=== PATIENT | male | born 1940 | race Hispanic/Latino ===

== ENCOUNTER 2017-06-18 19:23 | Inpatient (IN) | payer MEDICARE, OTHER ==
[~2017-06-18] VITALS: Ht 165.1 cm; Wt 80.9 kg
[~2017-06-18 19:23] MED LIST: BENA20TA3 PO; BRIM5DRO4 OU; DORZ10DR10 OU; LACT1CAP58 PO; LATA2.5D2 OU; LEVO750T46 PO; LOVA20TA3 PO
[2017-06-18 20:38] LABS: HEMATOCRIT 40.2 % (42-54); MEAN CORPUSCULAR HEMOGLOBIN 30.9 pg (27.0-33.0); MEAN CORPUSCULAR VOLUME 90.8 fL (79-99); PLATELET COUNT (AUTO) 168 K/uL (130-400); RED BLOOD CELL COUNT(AUTO) 4.43 MIL/uL (4.50-6.20); RED CELL DISTRIBUTION WIDTH 14.1 % (11.0-15.5); WHITE BLOOD COUNT (AUTO) 9.3 K/uL (4.8-10.8)
[2017-06-18 20:47] LABS: APPEARANCE,URINE Cloudy (CLEAR); BILIRUBIN,URINE Negative (NEGATIVE); COLOR,URINE Yellow (YELLOW); GLUCOSE, URINE (UA) Negative (NEGATIVE); KETONES,URINE Negative (NEGATIVE); LEUKOCYTE ESTERASE ,URINE Moderate (NEGATIVE); NITRATE,URINE Negative (NEGATIVE); OCCULT BLOOD,URINE Moderate (NEGATIVE); PROTEIN,URINE POS 2+ (NEGATIVE); UROBILINOGEN,URINE 0.2 mg/dL (0.2-1.0)
[2017-06-18 20:50] LABS: CREATININE 0.9 mg/dL (0.5-1.5); POTASSIUM 3.7 mmol/L (3.5-5.1)
[2017-06-18 20:55] LABS: ALBUMIN 3.4 g/dL (3.5-5.0); BILIRUBIN,TOTAL 0.3 mg/dL (0.2-1.0); TOTAL PROTEIN, SERUM 7.2 g/dL (6.0-8.3)
[2017-06-18] MEDS ORDERED: IPRATROPIUM/ALBUTEROL SULFATE 3 ML SOLUTION IH ONE (20:59)
[2017-06-18 21:03] LABS: BACTERIA,URINE Few /HPF (None Seen); WBC,URINE 51-100 /HPF (0-1)
[2017-06-18] MEDS ORDERED: MEROPENEM 1 GM VIAL ONE (21:12)
[2017-06-18] MEDS ORDERED: SODIUM CHLORIDE 0.9% 1000ML 1,000 ML IV ONE (21:12)
[2017-06-18] MEDS ORDERED: ACETAMINOPHEN EXTRA STRENGTH 500 MG TABLET ONE (21:13)
[2017-06-18 21:14] LABS: BAND NEUTROPHILS % (MANUAL) 20 % (0-2); LYMPHOCYTES % (MANUAL) 11 % (22-44); MONOCYTES % (MANUAL) 6 % (2-9); REACTIVE LYMPHOCYTES 1 % (0-0); SEGMENTED NEUTROPHILS % 62 % (40-70)
[2017-06-18 21:16] LABS: MAN.DIFF COMMENT-IMPRESSION MANUAL DIFFERENTIAL; PLATELET MORPHOLOGY COMMENT ADEQUATE
[2017-06-19] MEDS ORDERED: SODIUM CHLORIDE 0.9% 1000ML 1,000 ML IV SCH (01:04)
[2017-06-19] MEDS ORDERED: LACTULOSE 20 GM/30 ML UDCUP PO PRN (01:15)
[2017-06-19] MEDS ORDERED: ACETAMINOPHEN 325 MG TAB PO PRN (01:15)
[2017-06-19] MEDS ORDERED: MORPHINE SULFATE 2 MG/ML 1ML SYG IVP PRN ×2 (01:15)
[2017-06-19] MEDS ORDERED: POTASSIUM CHLORIDE 20 MEQ ERTAB PO PRN (01:15)
[2017-06-19] MEDS ORDERED: POTASSIUM CHLORIDE 20MEQ/100ML 100 ML IV PRN (01:15)
[2017-06-19] MEDS ORDERED: POTASSIUM CHLORIDE 10% ELIXIR 20 MEQ/15 ML UDCUP PO PRN (01:15)
[2017-06-19] MEDS ORDERED: LIDOCAINE HCL-MPF 1% 2ML VIAL IVP PRN (01:15)
[2017-06-19] MEDS ORDERED: SODIUM CHLORIDE 0.9% 1000ML 1,000 ML IV ONE (01:24)
[2017-06-19] MEDS ORDERED: MEROPENEM 500MG+NS 50ML 50 ML IV SCH (02:00)
[2017-06-19] MEDS: IPRATROPIUM/ALBUTEROL SULFATE 3 ML SOLUTION IH SCH ×3 (03:37→10:00)
[2017-06-19 05:46] LABS: BASOPHILS % (AUTO) 0.3 % (0.0-5.0); EOSINOPHILS % (AUTO) 0.1 % (0.0-8.0); HEMATOCRIT 32.8 % (42-54); MEAN CORPUSCULAR HEMOGLOBIN 32.2 pg (27.0-33.0); MEAN CORPUSCULAR HGB CONC 34.7 g/dL (32.0-36.0); MEAN CORPUSCULAR VOLUME 92.6 fL (79-99); MONOCYTES % (AUTO) 7.5 % (3.0-13.0); NEUTROPHILS % (AUTO) 74.1 % (40.0-77.0); PLATELET COUNT (AUTO) 139 K/uL (130-400); RED BLOOD CELL COUNT(AUTO) 3.54 MIL/uL (4.50-6.20); WHITE BLOOD COUNT (AUTO) 6.7 K/uL (4.8-10.8)
[2017-06-19 05:57] LABS: POTASSIUM 3.9 mmol/L (3.5-5.1)
[2017-06-19] MEDS ORDERED: IPRATROPIUM/ALBUTEROL SULFATE 3 ML SOLUTION IH ONE (06:58)
[2017-06-19] MEDS ORDERED: FAMOTIDINE 20MG TAB 20 MG TAB ONE (08:20)
[2017-06-19] MEDS ORDERED: OSELTAMIVIR PHOSPHATE 75 MG CAP ONE (08:20)
[2017-06-19] MEDS ORDERED: FAMOTIDINE 20MG TAB 20 MG TAB PO SCH (09:00)
[2017-06-19] MEDS ORDERED: OSELTAMIVIR PHOSPHATE 75 MG CAP PO SCH (09:00)
[2017-06-19] MEDS ORDERED: ALBUTEROL SULFATE 0.083% 2.5 MG/3 ML INH IH ONE (09:39)
[2017-06-19] MEDS ORDERED: IPRATROPIUM 0.5 MG/2.5 ML INH IH ONE (09:39)
[2017-06-19] MEDS ORDERED: MEROPENEM 500 MG VIAL ONE (09:53)
[2017-06-19 11:58] VITALS: BP 119/54
[2017-06-19] MEDS ORDERED: TAMS-1 PO (12:16)
[2017-06-19] MEDS ORDERED: TIMO5DRO35 OU (12:16)
[2017-06-20] MEDS ORDERED: ENOXAPARIN SODIUM 40 MG/0.4 ML SYRINGE SQ SCH ×2 (09:00)
== END 2017-06-19 12:29 | disposition left against medical advice (07) | DRG 872 ==
LOC: EDH 19:23 → EDHIP 06-19 00:15 → 2DH 06-19 11:19
PROVIDERS: ADMIT Family Medicine; ATTEND Family Medicine
DX: A41.9 Sepsis, unspecified organism (principal); E86.0 Dehydration; N39.0 Urinary tract infection, site not specified; E78.5 Hyperlipidemia, unspecified; H40.9 Unspecified glaucoma; I10 Essential (primary) hypertension; J10.1 Influenza due to other identified influenza virus with other respiratory manifestations; N40.0 Benign prostatic hyperplasia without lower urinary tract symptoms; Z16.24 Resistance to multiple antibiotics; F41.9 Anxiety disorder, unspecified; N41.1 Chronic prostatitis; Z82.49 Family history of ischemic heart disease and other diseases of the circulatory system
CPT/HCPCS: 36415; 71046; 80048; 80053; 81001; 83605; 85025; 87040; 87088; 87186; 87804; 94640; 94664; A4218; J2185; J7030

== ENCOUNTER 2024-09-07 03:00 | Emergency (ER) | payer MEDICARE ==
[~2024-09-07] VITALS: Ht 165.1 cm; Wt 72.6 kg
[~2024-09-07 03:00] MED LIST changes: +BENA-8 PO; -BENA20TA3 PO; -BRIM5DRO4 OU; +BRIM5DRO5 OU; -DORZ10DR10 OU; -LACT1CAP58 PO; +LATA2.5D14 OU; -LATA2.5D2 OU; -LEVO750T46 PO; +TAMS-55 PO; +TIMO5DRO47 OU
[2024-09-07 03:36] LABS: BASOPHILS # (AUTO) 0.02 K/uL (0.00-0.20); BASOPHILS % (AUTO) 0.2 % (0.0-5.0); CREATININE 1.1 mg/dL (0.5-1.3); HEMATOCRIT 39.3 % (42-54); IMMATURE GRANULOCYTE ABSOLUTE 0.03 K/uL (0-1); LYMPHOCYTES # (AUTO) 0.6 K/uL (1.0-4.8); MEAN CORPUSCULAR HEMOGLOBIN 31.1 pg (27.0-33.0); MEAN CORPUSCULAR HGB CONC 33.8 g/dL (32.0-36.0); MONOCYTES # (AUTO) 0.3 K/uL (0.1-1.0); MONOCYTES % (AUTO) 2.7 % (3.0-13.0); NEUTROPHILS # (AUTO) 9.3 K/uL (1.8-7.7); NEUTROPHILS % (AUTO) 90.8 % (40.0-77.0); PLATELET COUNT (AUTO) 166 K/uL (130-400); POTASSIUM 3.6 mmol/L (3.5-5.1); RED BLOOD CELL COUNT(AUTO) 4.27 MIL/uL (4.50-6.20); RED CELL DISTRIBUTION WIDTH 13.1 % (11.0-15.5); WHITE BLOOD COUNT (AUTO) 10.3 K/uL (4.8-10.8)
[2024-09-07 03:37] LABS: RAPID GROUP A STREP negative (NEGATIVE)
[2024-09-07 03:41] LABS: SARS-CoV-2, RNA, NAAT NEGATIVE SARS CoV-2 (NEGATIVE)
[2024-09-07 03:48] LABS: INFLUENZA TYPE A Negative For Type A (NEGATIVE); INFLUENZA TYPE B Negative For Type B (NEGATIVE)
--- NOTE | 2024-09-07 04:07 | ERN ---
General Chief Complaint: Sepsis Stated Complaint: FEVER, UA FREQUENCY Time Seen by MD: 03:10 Source: patient, family History of Present Illness Initial Comments This is an 84-year-old male who states that he has no real medical problems with his heart or his kidneys and he comes in with concerns of a urinary tract infection. He states that he has prostatitis which leads to numerous urinary tract infections occurring every other month or so. Normally his urinary tract infections are treated as an outpatient as his only symptom is urinary frequency. He goes to his primary care doctor who obtains a urine culture and then right so prescription for the appropriate antibiotic a couple days later. This time the patient also noted increased weakness and extreme frequency and therefore he comes to the emergency room today. Timing/Duration: 4-6 hours, 24 hours Associated Symptoms: syncope, weakness Allergies: Coded Allergies: iodine (Unverified Allergy, Unknown, 09/07/24) Home Meds Reported Medications Tamsulosin HCl (Flomax) 0.4 Mg Cap.er.24h, 0.4 MG PO DAILY, CAPSULE.DR 06/19/17 Timolol (Betimol) 5 Ml Drops, 1 DROP OU BID, DROP 06/19/17 Latanoprost (Latanoprost) 2.5 Ml Drops, 1 DROP OU HS, DROP 08/01/16 Brimonidine Tartrate (Brimonidine Tartrate) 5 Ml Drops, 1 DROP OU BID, DROP 08/01/16 Benazepril HCl (Benazepril HCl) 20 Mg Tablet, 20 MG PO DAILY, TAB 08/01/16 Lovastatin (Lovastatin) 20 Mg Tablet, 20 MG PO HS, TAB 08/01/16 Past Medical History Past Medical History: High Cholesterol, Hypertension, Other Medical History Other: PTSD, PROSTATITIS, ESBL, E-COLI Past Surgical History: None Cardiovascular: (+) other documentation Nurses Notes Reviewed: Yes Physical Exam General Appearance: (+) no apparent distress Orientation: (+) alert Head/Face Trauma: No Eye: bilateral eye normal inspection, bilateral eye PERRL, bilateral eye EOMI Ear, Nose, Throat: (+) hearing grossly normal, (+) moist mucous membraine, (+) normal pharynx Neck: (+) normal inspection, (+) supple, (+) full range of motion, (+) no JVD Respiratory: (+) chest non-tender, (+) lungs clear, (+) well ventilated Heart: (+) regular, (+) tachycardia Vascular Comment +0.5 pitting edema bilateral lower extremities Gastrointestinal: (+) soft, (+) non-tender, (+) bowel sound present Gastrointestinal Comment Possible hyperactive bowel sounds Back: (+) no CVA tenderness Neurologic/Psychiatric: (+) normal speech Skin: (+) normal color Skin Comment Mild tenting of skin indicating dehydration IVF Sepsis Management IVF Sepsis Management BMI >30kg/m2?: No IVF calculated by IBW?: No Results Laboratory and Microbiology Lab and Micro Result Laboratory Tests Test 09/07/24 03:10 09/07/24 03:22 09/07/24 04:09 White Blood Count 10.3 K/uL (4.8-10.8) Red Blood Count 4.27 MIL/uL (4.50-6.20) L Hemoglobin 13.3 g/dL (14.0-18.0) L Hematocrit 39.3 % (42-54) L Mean Corpuscular Volume 92.0 fL (79-99) Mean Corpuscular Hemoglobin 31.1 pg (27.0-33.0) Mean Corpuscular Hemoglobin Concent 33.8 g/dL (32.0-36.0) Red Cell Distribution Width 13.1 % (11.0-15.5) Platelet Count 166 K/uL (130-400) Mean Platelet Volume 9.2 fL (7.5-10.5) Immature Granulocyte % (Auto) 0.3 % (0-1) Neutrophils (%) (Auto) 90.8 % (40.0-77.0) H Lymphocytes (%) (Auto) 6.0 % (21.0-51.0) L Monocytes (%) (Auto) 2.7 % (3.0-13.0) L Eosinophils (%) (Auto) 0.0 % (0.0-8.0) Basophils (%) (Auto) 0.2 % (0.0-5.0) Neutrophils # (Auto) 9.3 K/uL (1.8-7.7) H Lymphocytes # (Auto) 0.6 K/uL (1.0-4.8) L Monocytes # (Auto) 0.3 K/uL (0.1-1.0) Eosinophils # (Auto) 0.00 K/uL (0.00-0.70) Basophils # (Auto) 0.02 K/uL (0.00-0.20) Absolute Immature Granulocyte (auto 0.03 K/uL (0-1) Nucleated Red Blood Cells 0.0 % (0.0-0.19) White Cell Morphology Comment See comments Sodium Level 129 mmol/L (136-145) L Potassium Level 3.6 mmol/L (3.5-5.1) Chloride Level 95 mmol/L (101-111) L Carbon Dioxide Level 27 mmol/L (21-32) Blood Urea Nitrogen 15 mg/dL (7-18) Creatinine 1.1 mg/dL (0.5-1.3) Glomerular Filtration Rate Calc 66 mL/min (>90) Random Glucose 98 mg/dL (70-105) Lactic Acid Level 1.8 mmol/L (0.8-2.5) Total Calcium 8.7 mg/dL (8.5-10.1) Total Creatine Kinase 175 U/L (21-232) Troponin I High Sensitivity 13 ng/L (4-75) Procalcitonin 0.59 ng/mL (0.05-0.5) H Influenza Type A Antigen Negative For Type A Influenza Type B Antigen Negative For Type B SARS-CoV-2, RNA, NAAT NEGATIVE SARS CoV-2 Group A Streptococcus Rapid negative (NEGATIVE) Urine Color YELLOW (YELLOW) Urine Appearance TURBID (CLEAR) Urine pH 7.0 (5.0-8.0) Urine Specific [place] 1.008 (1.001-1.031) Urine Protein 50 mg/dL (NEGATIVE) H Urine Glucose (UA) NEGATIVE mg/dL (NEGATIVE) Urine Ketones NEGATIVE mg/dL (NEGATIVE) Urine Occult Blood LARGE (NEGATIVE) H Urine Nitrate NEGATIVE (NEGATIVE) Urine Bilirubin NEGATIVE mg/dL (NEGATIVE) Urine Urobilinogen 0.2 mg/dL (0.2-1.0) Urine Leukocyte Esterase 500 Batool/uL (NEGATIVE) H Urine RBC 2-5 /HPF (0-1) H Urine WBC TNTC /HPF (0-1) H Urine WBC Clumps (Auto) MANY /HPF (0-1) Urine Squamous Epithelial Cells RARE /HPF (0-2) Urine Bacteria FEW /HPF (None Seen) [facility] Dr TAYLOR took over care of the patient at 0700 pending disposition. CC: Fever, urinary frequency Historian: Patient Comorbidities: Prostatitis, frequent UTIs, DLD, hypertension, and end-stage Limitations by social of the tremors of health: None Differential diagnosis: SIRS, prostatitis, UTI, dehydration, other. Vital signs: Initially febrile, mildly tachycardic, blood pressure stable. Labs (independently interpreted by me): No leukocytosis, left shift 90.8% neutrophils. No bands. No anemia. Chemistry shows a sodium of 129 and chloride 95 consistent with dehydration otherwise electrolytes are stable. L actic acid is normal. CK is normal. Troponin normal. Flu SARS negative. Urinalysis consistent with infection with white blood cells. Treatment in ED: 1 L normal saline, 1 g of cefepime IV., Tylenol, tamsulosin Reassessment: vital signs improved. Stable vital signs. GCS 15. Soft nontender abdomen. Plan: I wanted to admit the patient, I called the hospitalist for admission and spoke with the family and they agreed to the admission, diagnosis of sepsis and UTI. I was called back and the family changed their mind and they want to go home. It is about eight in the morning, and their outpatient doctors pradeep Polanco. The family reports that the patient gets similar symptoms about once a month and does to pradeep giles, they checked cultures and treat with oral antibiotics. Did discuss the risks of being discharged, since the patient does take we meet SIRS criteria has an elevated procalcitonin was febrile, the patient may benefit from IV antibiotics. He may have worsening condition due to his advanced age and comorbidities. At family reports that they understand this, but they do not want to stay in the hospital. He reports that he is going to go to his outpatient doctor later this morning. I did finish the dose of cefepime here in the ER in the IV, and will give him a prescription for cefpodoxime. He is going to discuss whether to continue this prescription or to get a new prescription with Dr. Pradeep cooley. I did warn the family That the patient is at risk of a worsening condition due to his age and comorbidities and he should immediately return to the emergency department if he develops any high fevers, lethargy, persistent vomiting, or any other concerning symptom for IV resuscitation antibiotics. Family agrees with this plan. Will be discharged. ED Course Orders Procedure Category Date Status Time Iv Insertion CPOE 09/07/24 Transmitted 03:18 Pulse Ox(Continuous) RT 09/07/24 Transmitted 03:18 Vital Signs Per CPOE 09/07/24 Transmitted Routine 03:18 12 Lead Ekg Tracing- EKG 09/07/24 Complete Technical 03:18 Cbc With Differential LAB 09/07/24 Complete 03:18 Blood Cult MEGAN 09/07/24 In Process 03:18 Urinalysis Profile LAB 09/07/24 Complete 03:18 Culture Urine MEGAN 09/07/24 In Process 03:18 Creatine Kinase, Total LAB 09/07/24 Complete 03:18 Troponin I High LAB 09/07/24 Complete Sensitivity 03:18 Lactic Acid LAB 09/07/24 Complete 03:18 Basic Metabolic Panel LAB 09/07/24 Complete 03:18 Covid Rna Naat LAB 09/07/24 Complete 03:20 Influenza Type A & B, LAB 09/07/24 Complete Rapid 03:20 Rapid (Group A Strep) LAB 09/07/24 Complete 03:20 Cefepime Hcl 1 Gm PHA 09/07/24 In Process Vial (Maxipime 1 Gm Vi 04:00 Lactated Ringers PHA 09/07/24 Complete 1000ml (Lactated 04:00 Code Status CODE 09/07/24 Transmitted 04:04 Procalcitonin LAB 09/07/24 Complete 04:04 Acetaminophen 500mg PHA 09/07/24 Complete Tab (Tylenol 500mg T 05:14 Acetaminophen 500mg PHA 09/07/24 Complete Tab (Tylenol 500mg T 05:30 Tamsulosin Hcl PHA 09/07/24 Complete (Flomax) 05:41 Tamsulosin Hcl PHA 09/07/24 Complete (Flomax) 06:00 Orthostatic Vital CPOE 09/07/24 Transmitted Signs 06:03 0.9% Nacl 500ml PHA 09/07/24 In Process Iv.Soln (Ns 500ml 07:30 Current Medications Medications (Trade) Dose Ordered Sig/Minda Route PRN Reason Start Time Stop Time Status Last Admin Dose Admin Acetaminophen (TYLenol 500MG TAB) 500 mg ONCE ONCE PO 09/07/24 05:30 09/07/24 05:31 DC 09/07/24 05:21 Acetaminophen (TYLenol 500MG TAB) 500 mg STK-MED ONCE .ROUTE 09/07/24 05:14 09/07/24 05:14 DC Cefepime HCl (MAXipime 1 GM vial) 1 gm Q12H IVPB 09/07/24 04:00 09/17/24 03:59 09/07/24 04:15 Lactated Ringer's 615 ml @ 205 mls/hr ONCE ONCE IV 09/07/24 04:00 09/07/24 07:13 DC 09/07/24 04:15 Sodium Chloride 500 ml @ 0 mls/hr Q0M IV 09/07/24 07:30 10/07/24 07:29 Tamsulosin HCl (FloMAX) 0.4 mg ONCE ONCE PO 09/07/24 06:00 09/07/24 06:01 DC 09/07/24 05:57 Tamsulosin HCl (FloMAX) 0.4 mg STK-MED ONCE .ROUTE 09/07/24 05:41 09/07/24 05:42 DC Vital Signs Date Time Temp Pulse Resp B/P (MAP) Pulse Ox O2 Delivery O2 Flow Rate FiO2 09/07/24 06:39 100.2 91 18 106/64 98 Room Air* 0 09/07/24 06:14 112 20 115/59 96 Room Air* 0 09/07/24 06:12 105 18 111/68 97 Room Air* 0 09/07/24 06:10 100 16 96/57 96 Room Air* 0 09/07/24 05:21 101.5 09/07/24 04:20 101.5 110 20 102/57 96 Room Air* 0 09/07/24 03:21 101.8 114 22 120/64 96 Room Air* 0 09/07/24 03:02 101.1 112 22 132/72 95 Room Air DX & DISP Disposition: Discharge Departure Impression: Primary Impression: UTI (urinary tract infection) Additional Impression: Dehydration Condition: Stable Scripts Cefpodoxime Proxetil (Cefpodoxime Proxetil) 200 Mg Tablet 200 MG PO BID for 10 Days, #20 TAB Prov: BECCA TAYLOR DO 09/07/24 Additional Instructions: Your symptoms are consistent with a urinary tract infection. On your arrival to the emergency department you had a fever and elevated heart rate. These vital signs improved in the ER. Your blood work (CBC, BMP, procalcitonin, CK, lactic acid) shows a normal white blood cell counts with 90% neutrophils consistent with infection. The e lectrolytes and kidney function are normal. The procalcitonin is mildly elevated. Lactic acid is normal. All of these labs are consistent with a infection. You received IV fluids and IV antibiotics (cefepime) here in the ER. As we discussed, many people with your condition are treated in the hospital. If you have any concerning symptoms please return to the emergency department for re-evaluation and IV antibiotics. I have prescribed cefpodoxime, which is an oral antibiotic. As we discussed, you can take this twice per day. I recommend that you discuss this antibiotic choice with Dr. Pradeep Polanco. Go to Dr. Polanco' office today for further evaluation. Referrals: PRADEEP POLANCO MD (PCP) SARAH DREW MD Sep 07, 2024 04:07 BECCA TAYLOR DO Sep 07, 2024 08:08
[2024-09-07] MEDS: LACTATED RINGERS IV ONE (04:15)
[2024-09-07] MEDS: ceFEPime HCL 1 GM VIAL IVPB SCH (04:15)
[2024-09-07 04:38] LABS: APPEARANCE,URINE TURBID (CLEAR); BILIRUBIN,URINE NEGATIVE (NEGATIVE); GLUCOSE, URINE (UA) NEGATIVE (NEGATIVE); KETONES,URINE NEGATIVE (NEGATIVE); LEUKOCYTE ESTERASE ,URINE 500 Leu/uL (NEGATIVE); NITRATE,URINE NEGATIVE (NEGATIVE); OCCULT BLOOD,URINE LARGE (NEGATIVE); PROTEIN,URINE 50 mg/dL (NEGATIVE); UROBILINOGEN,URINE 0.2 mg/dL (0.2-1.0)
[2024-09-07 04:42] LABS: ADD UA MICROSCOPIC YES; COLOR,URINE YELLOW (YELLOW)
[2024-09-07 04:44] LABS: BACTERIA,URINE FEW /HPF (None Seen); MUCUS,URINE RARE LPF (None Seen); SQUAMOUS EPITHELIAL CELL,UR RARE /HPF (0-2); WBC CLUMP MANY /HPF (0-1); WBC,URINE TNTC /HPF (0-1)
[2024-09-07] MEDS: acetaMINOPHEN 500 MG TABLET PO ONE (05:21)
[2024-09-07] MEDS: acetaMINOPHEN 500 MG TABLET ONE (05:21)
[2024-09-07] MEDS: tamSULOsin HCL 0.4 MG CAP.ER.24H ONE (05:57)
[2024-09-07] MEDS: tamSULOsin HCL 0.4 MG CAP.ER.24H PO ONE (05:57)
[2024-09-07 06:39] VITALS: TEMP 100.3
--- NOTE | 2024-09-07 07:05 | NUR ---
ASSUMED CARE AT THIS TIME PT AOX4 NO SIGNS OF DISTRESS OR PAIN
--- NOTE | 2024-09-07 07:21 | EKG ---
[facility] Test Date: 2024-09-07 Test Time: 03:14:16 Pat Name: ANTONINO DICKERSON Department: [facility] Room: Gender: M Trauma Coordinator: [id number] : 1940 Requested By: SARAH DREW Order Number: [id number] Reading MD: Galileo Mcginnis Measurements Intervals [place] Rate: 111 P: 29 ME: 174 QRS: 248 QRSD: 150 T: 41 QT: 351 QTc: 478 Interpretive Statements Sinus tachycardia Nonspecific IVCD with Indeterminate axis ST elevation secondary to IVCD Compared to ECG 10/03/2016 22:06:23 Intraventricular conduction delay now present ST (T wave) deviation now present Sinus bradycardia no longer present Left-axis deviation no longer present Right bundle-branch block no longer present Myocardial infarct finding no longer present Electronically Signed On 09-07-2024 12:31:54 CDT by Galileo Mcginnis Please click the below link to view image of tracing.
[2024-09-07] MEDS: 0.9% NACL 500ML IV.SOLN 500 ML IV SCH (07:38)
[2024-09-07] MEDS ORDERED: CEFP200T14 PO (08:05)
[2024-09-07 09:11] VITALS: BP 107/60; PULSE 85; RESP 18; TEMP 98; O2SAT 99
== END 2024-09-07 09:33 | disposition home or self-care (01) ==
LOC: EDH 03:00
DX: N39.0 Urinary tract infection, site not specified (principal); E78.00 Pure hypercholesterolemia, unspecified; E86.0 Dehydration; I10 Essential (primary) hypertension; Z88.8 Allergy status to other drugs, medicaments and biological substances; Z91.041 Radiographic dye allergy status; Z20.822 Contact with and (suspected) exposure to COVID-19
CPT/HCPCS: 99284; 96365; J7120; J0692; 36415; 80048; 81001; 82550; 83605; 84145; 84484; 85025; 87040; 87086; 87186; 87635; 87804; 87880; 93005